=== PATIENT | male | born 1950 | race Caucasian/White ===

== ENCOUNTER 2019-12-08 13:57 | Outpatient (RCR) | payer MEDICARE, OTHER ==
[2020-02-09] MEDS ORDERED: TMSL.4C PO (14:56)
[2020-02-09] MEDS ORDERED: LISI-556 PO (14:56)
[2020-02-09] MEDS ORDERED: LEVO50TA6 PO (14:56)
[2020-02-09] MEDS ORDERED: METF-845 PO (14:56)
[2020-02-09] MEDS ORDERED: DOXY100C2 PO (14:56)
[2020-02-09] MEDS ORDERED: SIMV20TA26 PO (14:56)
[2020-02-09] MEDS ORDERED: FINA5TAB6 PO (14:56)
[2020-02-09] MEDS ORDERED: GLIM2TAB4 PO (14:56)
[2020-02-16] MEDS ORDERED: CIPR-226 PO (10:08)
[2020-02-16] MEDS ORDERED: ACET1TAB43 PO (10:08)
== END 2020-03-07 | disposition home or self-care (01) ==
LOC: ONC 13:57
PROVIDERS: ATTEND Radiology Radiation Oncology
DX: C61 Malignant neoplasm of prostate (principal)
CPT/HCPCS: 76873; G0463; 99205

== ENCOUNTER 2020-02-14 05:37 | Outpatient (RCR) | payer MEDICARE, OTHER ==
[~2020-02-14] VITALS: Ht 167.7 cm; Wt 72.7 kg
[~2020-02-14 05:37] MED LIST: DOXY100C2 PO; FINA5TAB6 PO; GLIM2TAB4 PO; LEVO50TA6 PO; LISI-556 PO; METF-760 PO; SIMV20TA26 PO; TMSL.4C PO
== END 2020-02-14 14:43 | disposition home or self-care (01) ==
LOC: PREOP 05:37
PROVIDERS: ATTEND Radiology Radiation Oncology
DX: Z01.812 Encounter for preprocedural laboratory examination (principal); Z20.828 Contact with and (suspected) exposure to other viral communicable diseases
CPT/HCPCS: 87635

== ENCOUNTER 2020-02-16 09:05 | Day surgery (SDC) | payer MEDICARE, OTHER ==
[2020-02-16] VITALS (10 sets, daily range): BP systolic 132–173; BP diastolic 71–93
[~2020-02-16] VITALS: Ht 167.7 cm; Wt 72.7 kg
[2020-02-16] MEDS ORDERED: LACTATED RINGERS 1,000 ML IV PRN (09:12)
[2020-02-16] MEDS ORDERED: LEVOFLOXACIN 500 MG/100 ML IV 100 ML IV ONE (09:15)
[2020-02-16] MEDS ORDERED: ONDANSETRON 4 MG/2 ML (SDV) Z0FRAN ONE (09:58)
[2020-02-16] MEDS ORDERED: fentaNYL INJECTION 100 MCG/2 ML AMP ONE ×3 (09:58→12:47)
[2020-02-16] MEDS ORDERED: SEVOFLURANE (ULTANE) 15 ML INHAL SOLN ONE (09:58)
[2020-02-16] MEDS ORDERED: proPOfol 200 MG/20 ML (DIPRIVAN) VIAL IV ONE (09:58)
[2020-02-16] MEDS ORDERED: LIDOCAINE PF 2% 5 ML (XYLOCAINE) VIAL ONE (09:58)
--- NOTE | 2020-02-16 10:04 | Progress Note-Pre Operative ---
Pre-Operative Progress Note H&P Reviewed The H&P was reviewed, patient examined and no changes noted. Date Seen by Provider: Feb 16, 2020 Time Seen by Provider: 10:02 Date H&P Reviewed: Feb 16, 2020 Time H&P Reviewed: 10:03 Pre-Operative Diagnosis: Prostate cancer cT1c, PSA 5 (on Proscar), Don 7 (4+3) WILLIAN ARREDONDO MD Feb 16, 2020 10:04
[2020-02-16] MEDS ORDERED: ACET1TAB43 PO (10:08)
[2020-02-16] MEDS ORDERED: CIPR-226 PO (10:08)
--- NOTE | 2020-02-16 10:10 | Discharge Inst-Simple/Standard ---
Discharge Inst-Standard Reconcile Patient Problems Problems Reviewed?: Yes Discharge Medications New, Converted or Re-Newed RX: RX Given to Pt/Family Patient Instructions/Follow Up Plan of Care/Instructions/FU: 1) One month post implant follow up with Dr. Root 03/13/20 at 3:00 pm 2) One month post implant scan at [facility] cancer center 03/16/20 at 10:00 am Activity as Tolerated: Yes Discharge Diet: No Restrictions Other Inst to Patient Please instruct patient on newman catheter removal to be done on Tuesday 02/20 morning. WILLIAN ARREDONDO MD Feb 16, 2020 10:10
--- NOTE | 2020-02-16 11:00 | NUR ---
UPON ADMITION BUT STATED HIS RAHUL WERE CLEAR. I ADVISED PT THAT IN ORDER TO PROCEED WITH TODAYS PROCEDURE I COULD NOT SIMPLE GO OFF OF HIS WORD AND I WOULD NEED TO SEE A SAMPLE. PT HAD A BOWEL MOVEMENT AND WAS DOCUMENTED A CLEAR. I HAD FELLOW NURSE IRIS RN CHECK TO VERIFY THAT IT WAS CLEAR. IT THIS POINT NO ENEMA WAS GIVEN.
[2020-02-16] MEDS ORDERED: BACITRACIN OINTMENT 28 GM TUBE ONE (11:31)
[2020-02-16] MEDS ORDERED: morphine INJ 10 MG/ML 1ML (SYR OR VIAL) IVP ONE (12:15)
[2020-02-16] MEDS ORDERED: MEPERIDINE (DEMEROL) INJ 50 MG/ML IVP ONE (12:15)
[2020-02-16] MEDS ORDERED: ONDANSETRON 4 MG/2 ML (SDV) Z0FRAN IVP PRN (12:15)
[2020-02-16] MEDS ORDERED: fentaNYL INJECTION 100 MCG/2 ML AMP IVP ONE (12:15)
[2020-02-16] MEDS ORDERED: REGADENOSON 0.4 MG/5 ML SYR (LEXISCAN) IV ONE (12:30)
--- NOTE | 2020-02-16 12:31 | Progress Note-Post Operative ---
Post-Operative Progess Note Surgeon (s)/Siding Applicator (s) Surgeon WILLIAN ARREDONDO MD Siding Applicator: Olga EUGENE MD Pre-Operative Diagnosis Prostate cancer cT1c, PSA 5 (on Proscar), Don 7 (4+3) Post-Operative Diagnosis Same as pre-op Procedure & Operative Findings Date of Procedure 02/16/20 Procedure Performed/Findings (1) 67% Cesium 131 permanent prostate seed implant (2) Injection of biodegradable hydrogel prostate-rectal spacer utilizing the SpaceOAR system (3) Cystogram Prostate volume 24 cc Anesthesia Type General Estimated Blood Loss Estimated blood loss (mL): minimal Specimens/Packing Specimens Removed N/A Packing: N/A WILLIAN ARREDONDO MD Feb 16, 2020 12:31
--- NOTE | 2020-02-16 13:03 | Diagnostic Imaging Report ---
INDICATION: Fluoroscopy for brachytherapy. FINDINGS: Fluoroscopy was provided for Dr. Branch for performance of prostate brachytherapy. 14 seconds of fluoroscopic time was utilized. A single image was obtained demonstrating multiple radiation seed implants within the prostate. IMPRESSION: Fluoroscopy for prostate brachytherapy. Dictated by: Dictated on workstation # [id number]
--- NOTE | 2020-02-16 13:35 | Anesthesia-General Post-Op ---
General Patient Condition Mental Status/LOC: Same as Preop Cardiovascular: Satisfactory Nausea/Vomiting: Absent Respiratory: Satisfactory Pain: Controlled Complications: Absent Post Op Complications Complications None Follow Up Care/Instructions Patient Instructions None needed. Anesthesia/Patient Condition Patient Condition Patient is doing well, no complaints, stable vital signs, no apparent adverse anesthesia problems. No complications reported per nursing. LUKE PATRICIA CRNA Feb 16, 2020 13:35
== END 2020-02-16 14:25 ==
LOC: SDC 09:05
PROVIDERS: ATTEND Radiology Radiation Oncology
DX: C61 Malignant neoplasm of prostate (principal); I10 Essential (primary) hypertension; E11.9 Type 2 diabetes mellitus without complications; E03.9 Hypothyroidism, unspecified; K21.9 Gastro-esophageal reflux disease without esophagitis; E78.00 Pure hypercholesterolemia, unspecified; Z79.84 Long term (current) use of oral hypoglycemic drugs; Z79.899 Other long term (current) drug therapy; Z80.1 Family history of malignant neoplasm of trachea, bronchus and lung; Z80.0 Family history of malignant neoplasm of digestive organs; Z80.42 Family history of malignant neoplasm of prostate; Z80.52 Family history of malignant neoplasm of bladder
CPT/HCPCS: 55874; 76000; 76965; 77290; 77318; 77332; 77370; 77470; 77778; 82962; 87081; C1715 ×2; C2643

== ENCOUNTER 2020-05-04 09:15 | Outpatient (RCR) | payer MEDICARE, OTHER ==
[~2020-05-04 09:15] MED LIST changes: +ACET1TAB43 PO; +CIPR-226 PO; -METF-760 PO; +METF-845 PO
== END 2020-05-08 09:44 | disposition home or self-care (01) ==
LOC: ONC 09:15
PROVIDERS: ATTEND Radiology Radiation Oncology
DX: C61 Malignant neoplasm of prostate (principal)
CPT/HCPCS: 77290; 77300; 77301; 77334; 77336; 77338; 77385; 77470

== ENCOUNTER 2020-07-13 13:51 | Outpatient (RCR) | payer MEDICARE, OTHER ==
[~2020-07-13 13:51] MED LIST changes: -LISI-556 PO; +LISI-729 PO
== END 2020-08-06 | disposition home or self-care (01) ==
LOC: ONC 13:51
PROVIDERS: ATTEND Radiology Radiation Oncology
DX: C61 Malignant neoplasm of prostate (principal)
CPT/HCPCS: 77336; 77385; 84153; 99213